=== PATIENT | female | born 1990 | race Caucasian/White ===

== ENCOUNTER 2019-01-07 00:31 | Emergency (ER) | payer SELFPAY | END 2019-01-07 00:44 | disposition left against medical advice (07) | LOC: ER 00:31 | DX: Z53.21 Procedure and treatment not carried out due to patient leaving prior to being seen by health care provider (principal) | CPT/HCPCS: 82962 ==

== ENCOUNTER 2019-07-29 22:24 | Emergency (ER) | payer SELFPAY ==
--- NOTE | 2019-07-29 23:45 | ER Document Report ---
ED Medical Screen (RME) - General Chief Complaint: Flank Pain Stated Complaint: FLANK PAIN Notes: Patient is a 29-year-old white female who was seen at 4 AM yesterday morning and another emergency department for back pain, was diagnosed with a kidney infection placed on medications and discharged home who presents today via EMS with a complaint of the same. She states she does not believe that it is her kidneys that are causing her this much back pain. She is somnolent on presentation and must keep being told to remain awake so that we may discuss with her. She states she is taken no other medicines except for the Toradol she was given yesterday morning at 4 AM in the ED and ibuprofen at home. She denies any other pain, complaints or concerns at this time. Denies any dysuria, vaginal bleeding or discharge. I have treated and performed a rapid initial assessment of this patient. A comprehensive ED assessment and evaluation of the patient, analysis of test results and completion of medical decision making process will be conducted by additional ED providers. TRAVEL OUTSIDE OF THE [place] IN LAST 30 DAYS: No - Related Data Allergies/Adverse Reactions: No Known Allergies Allergy (Unverified 08/15/10 15:30) Past Medical History Skin Medical History: Denies Hx MRSA Physical Exam - Vital signs Vitals: Temp Pulse Resp BP Pulse Ox 100.5 F H 110 H 18 116/58 L 98 07/29/19 23:06 07/29/19 23:06 07/29/19 23:06 07/29/19 23:06 07/29/19 23:06 Course - Vital Signs Vital signs: Temp Pulse Resp BP Pulse Ox 100.5 F H 110 H 18 116/58 L 98 07/29/19 23:06 07/29/19 23:06 07/29/19 23:06 07/29/19 23:06 07/29/19 23:06
[2019-07-29] MEDS ORDERED: NORMAL SALINE 1000 ML 1,000 ML IV ONE (23:48)
--- NOTE | 2019-07-29 23:54 | ER Document Report ---
ED General - General TRAVEL OUTSIDE OF THE [place] IN LAST 30 DAYS: No - Related Data Home Medications: subutex <OTONIEL GAMINO - Last Filed: 07/30/19 03:54> <LINSEY WILKES - Last Filed: 07/30/19 06:57> - General Chief Complaint: Flank Pain Stated Complaint: FLANK PAIN Time Seen by Provider: 07/29/19 23:53 Primary Care Provider: TERESA CURTIS MD [ACTIVE STAFF] - Follow up as needed Notes: CHIEF COMPLAINT: Flank pain for 4 days HPI: 29-year-old female presenting to the emergency department complaining of chills, rigors, left flank pain over the last 4 days. Progressively worsening. States she went to an emergency department in [place] yesterday, they checked a urinalysis and told her she had a kidney infection placed her on an antibiotic she cannot remember the name of and discharged her. Patient reports worsening pain in the left flank with fever today. ROS: See HPI - all other systems were reviewed and are otherwise negative Constitutional: + fever Eyes: no drainage, no blurred vision ENT: no runny nose, no sore throat Cardiovascular: no chest pain Resp: no SOB, no cough GI: no vomiting, no diarrhea, + abdominal pain : + dysuria Integumentary: no rash Allergy: no hives Musculoskeletal: no extremity pain or swelling Neurological: no numbness/tingling, no weakness MEDICATIONS: I agree with the patient medications as charted by the RN. ALLERGIES: I agree with the allergies as charted by the RN. PAST MEDICAL HISTORY/PAST SURGICAL HISTORY: Reviewed and agree as charted by RN. SOCIAL HISTORY: Reviewed and agree as charted by RN. FAMILY HISTORY: No significant familial comorbid conditions directly related to patient complaint EXAM: Reviewed vital signs as charted by RN. CONSTITUTIONAL: Alert and oriented and responds appropriately to questions. Ill- appearing; well-nourished, moderate distress secondary to discomfort HEAD: Normocephalic; atraumatic EYES: PERRL; Conjunctivae clear, sclerae non-icteric ENT: normal nose; no rhinorrhea; moist mucous membranes; pharynx without lesions noted, no uvula edema or deviation, no tonsillar hypertrophy, phonation normal NECK: Supple without meningismus; non-tender; no cervical lymphadenopathy, no masses CARD: Tachycardic; no murmurs, no clicks, no rubs, no gallops; symmetric distal pulses RESP: Normal chest excursion without splinting or tachypnea; breath sounds clear and equal bilaterally; no wheezes, no rhonchi, no rales, pulse oximetry 98% on room air not hypoxic ABD/GI: Normal bowel sounds; non-distended; soft, mild tenderness to the left flank on palpation, no rebound, no guarding; no palpable organomegaly or masses. BACK: The back appears normal and is non-tender to palpation, there is mild left CVA tenderness EXT: Normal ROM in all joints; non-tender to palpation; no cyanosis, no effusions, no edema SKIN: Normal color for age and race; warm; dry; good turgor; no acute lesions noted NEURO: Moves all extremities equally; Motor and sensory function intact PSYCH: The patient's mood and manner are appropriate. Grooming and personal hygiene are appropriate. MDM: 29-year-old female presenting to the emergency department for left flank pain with fever and chills over the last 4 days progressively worsening. Patient has taken 2 doses of an unknown antibiotic. Still with fever, tachycardia left flank pain. Initial lab work by triage process. Will add CT to evaluate for pyelonephritis or renal abscess. Will start sepsis fluids and antibiotics (OTONIEL GAMINO) - Related Data Allergies/Adverse Reactions: No Known Allergies Allergy (Unverified 08/15/10 15:30) Past Medical History - Social History Smoking Status: Current Every Day Smoker Family History: Reviewed & Not Pertinent Patient has suicidal ideation: No Patient has homicidal ideation: No Skin Medical History: Denies Hx MRSA <OTONIEL GAMINO - Last Filed: 07/30/19 03:54> Physical Exam - Vital signs Vitals: Temp Pulse Resp BP Pulse Ox 100.5 F H 110 H 18 116/58 L 98 07/29/19 23:06 07/29/19 23:06 07/29/19 23:06 07/29/19 23:06 07/29/19 23:06 Course - Laboratory Result Diagrams: 07/30/19 01:45 07/30/19 01:45 <OTONIEL GAMINO - Last Filed: 07/30/19 03:54> - Laboratory Result Diagrams: 07/30/19 01:45 07/30/19 01:45 <LINSEY WILKES - Last Filed: 07/30/19 06:57> - Re-evaluation Re-evalutation: 07/30/19 00:57 I spoken with the patient several times. She has been unwilling to have nursing place a peripheral IV. After my first discussion with the patient she was w illing to let nursing look for an ultrasound IV. Nursing was about 2 place the line and patient then asked them to take it back out. They were unable to get blood work. I have gone to speak with her again. I did express to her our concerns over possible life-threatening illness. Patient has indicated that she would like to go home. I did speak with her at length about this and we did discuss all the risks involved including possible renal failure disability or with worsening condition. Patient is willing to think about having an EJ placed, discussed with Dr. Wilkes, attending. If patient is unwilling to have the EJ placed will discuss possible straight stick for blood or noncontrast CT to evaluate for abscess although it will be a limited study 07/30/19 01:39 Dr. Wilkes attempted EJ without success. Patient will not allow other attempts at IV access in the ER. She is willing to allow butterfly needle for blood work. She will not be able to get IV fluids at this point. She will have noncontrast CT which is not as desired as CT with contrast but as she is unwilling to allow further attempts at access will be obtained to evaluate left kidney for hydronephrosis 07/30/19 03:54 I did speak with the patient at length, her lab work does not show acute emergent abnormalities, very mild leukocytosis lactic acid normal, partially treated UTI, she has antibiotics at home. Her CT imaging is negative for acute findings, large amount of stool present. Will recommend MiraLAX, Pyridium. Patient was given Rocephin here in the emergency department. Follow-up PCP. discussed with Dr. Wilkes, attending prior to DC and she did evaluate the patient. Vital signs are stable. 07/30/19 03:56 (OTONIEL GAMINO) 07/30/19 06:56 I did personally see and examine this patient with left flank pain and fever and recent diagnosis of urinary tract infection in conjunction with nurse practitioner Otoniel Anderson. Patient was tachycardic but in no acute distress, currently met SIRS criteria but after further evaluation did not have any signs of sepsis. I did attempt an EJ on the left twice without success, the IV kinked both times. I did have an extensive discussion with the patient regarding the possibilities of using EMLA or other numbing medication to get an ultrasound- guided IV, she refuses any other sticks for IVs. She is aware that a non-IV contrasted CAT scan is less than ideal. (LINSEY WILKES) - Vital Signs Vital signs: Temp Pulse Resp BP Pulse Ox 98.0 F 110 H 21 H 103/59 L 96 07/30/19 03:59 07/29/19 23:06 07/30/19 04:01 07/30/19 04:01 07/30/19 04:01 - Laboratory Laboratory results interpreted by me: 07/30/19 07/30/19 07/30/19 00:05 01:45 01:45 WBC 11.3 H Hgb 9.8 L Hct 29.9 L MCV 77 L MCH 25.2 L RDW 14.6 H Sodium 132.9 L Potassium 3.5 L Glucose 112 H Lactic Acid AST 67 H ALT 96 H Urine Glucose (UA) 50 H Urine Ketones TRACE H Ur Leukocyte Esterase TRACE H 07/30/19 01:45 WBC Hgb Hct MCV MCH RDW Sodium Potassium Glucose Lactic Acid 0.6 L AST ALT Urine Glucose (UA) Urine Ketones Ur Leukocyte Esterase Discharge <OTONIEL GAMINO - Last Filed: 07/30/19 03:54> <LINSEY WILKES - Last Filed: 07/30/19 06:57> - Discharge Clinical Impression: Acute left flank pain UTI (urinary tract infection) Qualifiers: Urinary tract infection type: site unspecified Hematuria presence: without hematuria Qualified Code(s): N39.0 - Urinary tract infection, site not specified Condition: Stable Disposition: HOME, SELF-CARE Additional Instructions: Take MiraLAX to help with constipation, take Pyridium for the flank pain, Motrin Tylenol otherwise for fever or body ache. Continue the antibiotics you were previously prescribed. Your lab work and imaging studies today suggested moderate constipation but no other definitive acute findings. Follow-up with her primary care provider for reevaluation of symptoms call for appointment Prescriptions: Polyethylene Glycol 3350 [Miralax] 1 cap PO DAILY #527 powder Phenazopyridine HCl [Pyridium 100 Mg Tablet] 100 mg PO TID #9 tablet Referrals: TERESA CURTIS MD [ACTIVE STAFF] - Follow up as needed ED Sepsis - Sepsis Documentation Sepsis Patient: No <OTONIEL GAMINO - Last Filed: 07/30/19 03:54>
[2019-07-30] MEDS ORDERED: RINGERS SOLUTION,LACTATED 1,000 ML IV PRN
[2019-07-30] MEDS ORDERED: CEFTRIAXONE 1 GM/D5W RTU 1 GM/50 ML RTUPB IV ONE (00:01)
[2019-07-30] MEDS ORDERED: ACETAMINOPHEN 325 MG TABLET PO ONE (00:02)
[2019-07-30] MEDS ORDERED: KETOROLAC TROMETHAMINE INJ/PF 30 MG/1 ML SDV IV ONE (00:02)
[2019-07-30 00:42] LABS: APPEARANCE,URINE SLIGHTLY-CLOUDY; BILIRUBIN,URINE NEGATIVE (NEGATIVE); COLOR,URINE YELLOW; GLUCOSE, URINE 50 mg/dL (NEGATIVE); KETONES,URINE TRACE mg/dL (NEGATIVE); LEUKOCYTE ESTERASE,URINE TRACE (NEGATIVE); NITRITE,URINE NEGATIVE (NEGATIVE); PROTEIN,URINE NEGATIVE (NEGATIVE); URINE SPECIFIC GRAVITY 1.015; UROBILINOGEN,URINE NEGATIVE mg/dL (<2.0)
[2019-07-30 01:01] LABS: URINE BARBITURATES SCREEN NEGATIVE; URINE BENZODIAZEPINES SCREEN NEGATIVE; URINE COCAINE SCREEN NEGATIVE; URINE MARIJUANA (THC) SCREEN NEGATIVE; URINE METHADONE SCREEN NEGATIVE; URINE PHENCYCLIDINE SCREEN NEGATIVE
[2019-07-30] MEDS ORDERED: CEFTRIAXONE INJ 1000 MG VIAL IM ONE (01:41)
[2019-07-30 02:13] LABS: ABSOLUTE LYMPHOCYTES (AUTO) 2.1 10^3/uL (0.5-4.7); ABSOLUTE MONOCYTES (AUTO) 1.3 10^3/uL (0.1-1.4); ABSOLUTE NEUT (AUTO) 7.9 10^3/uL (1.7-8.2); BASOPHILS % (AUTO) 0.2 % (0-2); EOSINOPHILS % (AUTO) 0.1 % (0-6); HEMATOCRIT 29.9 % (36.0-47.0); HEMOGLOBIN 9.8 g/dL (12.0-15.5); LYMPHOCYTES % (AUTO) 18.2 % (13-45); MEAN CORPUSCULAR HEMOGLOBIN 25.2 pg (27.0-33.4); MEAN CORPUSCULAR HGB CONC 32.7 g/dL (32.0-36.0); MEAN CORPUSCULAR VOLUME 77 fl (80-97); MONOCYTES % (AUTO) 11.7 % (3-13); PLATELET COUNT 287 10^3/uL (150-450); RED BLOOD COUNT 3.88 10^6/uL (3.72-5.28); RED CELL DISTRIBUTION WIDTH 14.6 % (11.5-14.0); SEGMENTED NEUTROPHILS % (AUTO) 69.8 % (42-78); TOTAL CELLS COUNTED % (AUTO) 100 %; WHITE BLOOD COUNT 11.3 10^3/uL (4.0-10.5)
[2019-07-30 02:19] LABS: ALBUMIN 3.6 g/dL (3.5-5.0); ALKALINE PHOSPHATASE 89 U/L (38-126); ANION GAP 7 (5-19); ASPARTATE AMINO TRANSFERASE 67 U/L (14-36); BILIRUBIN,TOTAL 0.5 mg/dL (0.2-1.3); BLOOD UREA NITROGEN 11 mg/dL (7-20); CALCIUM 9.2 mg/dL (8.4-10.2); CARBON DIOXIDE 25 mmol/L (22-30); CHLORIDE 101 mmol/L (98-107); GLUCOSE 112 mg/dL (75-110); POTASSIUM 3.5 mmol/L (3.6-5.0); TOTAL PROTEIN 7.7 g/dL (6.3-8.2)
[2019-07-30] MEDS ORDERED: ACETAMINOPHEN 325 MG TABLET ONE (02:40)
[2019-07-30] MEDS ORDERED: PHENAZOPYRIDINE HCL 100 MG TABLET PO ONE (02:46)
--- NOTE | 2019-07-30 02:53 | RADIOLOGY REPORT (SQ) ---
EXAM DESCRIPTION: CT ABDOMEN PELVIS WITHOUT IV CONTRAST COMPLETED DATE/TME: 07/30/2019 01:40 CLINICAL HISTORY: 29 years, Female, left flank pain/unable to obtain IV access COMPARISON: None. TECHNIQUE: Images stored on PACS. All CT scanners at this facility use dose modulation, iterative reconstruction, and/or weight based dosing when appropriate to reduce radiation dose to as low as reasonably achievable (ALARA). [facility]: Dose Right [facility]: CareDose [facility]: Dose Right [facility]: Teradose 4D [facility]: LiveGO LIMITATIONS: None. FINDINGS: Artifact the patient's arms. The lung bases are grossly clear. The heart is of normal size. Liver is homogeneous. Detail of abdominal organs is lost due to artifact. The spleen is grossly normal. Pancreas is not well seen. The gallbladder is nondistended. The adrenals are not well seen. Kidneys appear to be of grossly normal contour. The bowel is nonobstructed. Moderate hard stool is seen within the right colon. Appendix is not convincingly seen but there are no pericecal inflammatory changes. No free air. No free fluid. The aorta is nonaneurysmal. The visualized bones are within normal limits, for age. IMPRESSION: No acute intra-abdominal process is identified. TECHNICAL DOCUMENTATION: Quality ID # [id number]: Final reports with documentation of one or more dose reduction techniques (e.g., Automated exposure control, adjustment of the mA and/or kV according to patient size, use of iterative reconstruction technique) copyright 2010 [employer]- All Rights Reserved
[2019-07-30 04:04] VITALS: BP 103/59
== END 2019-07-30 04:30 | disposition home or self-care (01) ==
LOC: ER 22:24
DX: N39.0 Urinary tract infection, site not specified (principal); R10.9 Unspecified abdominal pain; R50.9 Fever, unspecified; R30.0 Dysuria; F17.200 Nicotine dependence, unspecified, uncomplicated
CPT/HCPCS: 36415; 87040; 83605; 83690; 85025; 80053; 81001; 80307 ×2; 74176; G0480; J3490; J0696; 96372; 99284